=== PATIENT | male | born 1965 | race African-American/Black ===

== ENCOUNTER 2024-04-30 20:41 | Emergency (ER) | payer OTHER, BC ==
[2024-04-30] MEDS: guaiFENesin 600 MG Tab.ER PO ONE (21:53)
[2024-04-30] MEDS: Pseudoephedrine 30 MG Tab PO ONE (22:14)
[2024-04-30] MEDS: methylPREDNISolone Acetate 80 MG/ML SDV IM ONE (22:14)
== END 2024-04-30 22:18 | disposition home or self-care (01) ==
LOC: MW.ED 20:41
DX: J32.9 Chronic sinusitis, unspecified (principal); E11.9 Type 2 diabetes mellitus without complications; Z79.84 Long term (current) use of oral hypoglycemic drugs; Z91.048 Other nonmedicinal substance allergy status
CPT/HCPCS: 96372; 99283; A9270; J1010